=== PATIENT | male | born 1990 | race African-American/Black ===

== ENCOUNTER 2020-06-16 10:12 | Emergency (ER) | payer SELFPAY ==
--- NOTE | 2020-06-16 12:02 | RAD REPORT ---
EXAM DESCRIPTION: Kari Delgado (2 Views)06/16/2020 11:55 am CLINICAL HISTORY: Chest pain COMPARISON: None FINDINGS: The lungs appear clear of acute infiltrate. The heart is normal size IMPRESSION: No acute abnormalities displayed
[2020-06-16 12:58] LABS: Absolute Lymphocytes (CBC) 1.7 K/uL (0.7-4.9); Basophils % 0.6 % (0-1.3); Hematocrit 42.4 % (39.6-49.0); Lymphocytes % 20.2 % (15.3-44.8); MPV 8.2 fL (7.6-11.3); RBC Red Blood Cell Count 5.21 M/uL (4.33-5.43)
[2020-06-16 13:19] LABS: ALT/SGPT 15 U/L (12-78); AST/SGOT 13 U/L (15-37); Albumin 3.6 g/dL (3.4-5.0); Alkaline Phosphatase 86 U/L (45-117); BUN Blood Urea Nitrogen 8 mg/dL (7-18); Bicarbonate 32 mmol/L (21-32); Bilirubin Direct < 0.1 mg/dL (0-0.2); Bilirubin Total 0.7 mg/dL (0.2-1.0); Glucose Level 103 mg/dL (74-106); Protein, Total 7.7 g/dL (6.4-8.2); Sodium Level 141 mmol/L (136-145); Troponin (Emerg Dept Use Only) < 0.02 ng/mL (0.0-0.045)
--- NOTE | 2020-06-16 13:50 | EDPHYS ---
Physician Documentation [facility] Name: Jose Chung Age: 30 yrs Sex: Male : 1990 Arrival Date: 06/16/2020 Time: 10:14 Bed 17 Private MD: MARIBELL Physician Donavon Leon HPI: 06/16 12:21 This 30 yrs old Black Male presents to ER via Ambulatory with complaints of Chest Pain. pm1 12:21 The patient or guardian reports chest pain that is located primarily in the anterior pm1 aspect of left upper chest. The pain does not radiate. Associated signs and symptoms: The patient has no apparent associated signs or symptoms, Pertinent negatives: abdominal pain, cough, headache, nausea, palpitations, shortness of breath, vomiting, fever. The chest pain is described as sharp. Modifying factors: the symptoms are aggravated by deep breath. Severity of pain: in the emergency department the pain is unchanged. The patient has not experienced similar symptoms in the past. Historical: - Allergies: 10:30 No Known Allergies; ss - Home Meds: 10:30 None [Active]; ss - PMHx: 10:30 None; ss - PSHx: 10:30 None; ss - Immunization history:: Adult Immunizations up to date. - Social history:: Smoking status: Patient denies any tobacco usage or history of. ROS: 12:21 Constitutional: Negative for fever, chills, and weight loss. pm1 12:21 ENT: Negative for injury, pain, and discharge, Respiratory: Negative for shortness of breath, cough, wheezing, and pleuritic chest pain, Abdomen/GI: Negative for abdominal pain, nausea, vomiting, diarrhea, and constipation, Back: Negative for injury and pain, MS/Extremity: Negative for injury and deformity, Skin: Negative for injury, rash, and discoloration, Neuro: Negative for headache, weakness, numbness, tingling, and seizure. 12:21 Cardiovascular: Positive for chest pain, Negative for edema, palpitations. Exam: 12:21 Constitutional: This is a well developed, well nourished patient who is awake, alert, pm1 and in no acute distress. Head/Face: Normocephalic, atraumatic. 12:21 Chest/axilla: Normal chest wall appearance and motion. Nontender with no deformity. No lesions are appreciated. Cardiovascular: Regular rate and rhythm with a normal S1 and S2. No gallops, murmurs, or rubs. Normal PMI, no JVD. No pulse deficits. Respiratory: Lungs have equal breath sounds bilaterally, clear to auscultation and percussion. No rales, rhonchi or wheezes noted. No increased work of breathing, no retractions or nasal flaring. 12:21 Back: No spinal tenderness. No costovertebral tenderness. Full range of motion. Skin: Warm, dry with normal turgor. Normal color with no rashes, no lesions, and no evidence of cellulitis. MS/ Extremity: Pulses equal, no cyanosis. Neurovascular intact. Full, normal range of motion. 12:21 Abdomen/GI: Exam negative for acute changes, Inspection: abdomen appears normal, Palpation: abdomen is soft and non-tender, in all quadrants. 12:21 Neuro: Exam negative for acute changes, Orientation: is normal, Motor: is normal, moves all fours, Sensation: is normal, no obvious gross deficits. Vital Signs: 10:28 BP 138 / 82; Pulse 61; Resp 16; Temp 97.4(TE); Pulse Ox 100% on R/A; Weight 145.15 kg; ss Height 6 ft. 1 in. (185.42 cm); Pain 4/10; 12:50 Pulse 83; Pulse Ox 98% on R/A; jp3 13:02 BP 130 / 73; Pulse 61; Resp 17; Pulse Ox 98% on R/A; ll1 14:04 BP 127 / 73; Pulse 60; Resp 17; Pulse Ox 100% ; ll1 10:28 Body Mass Index 42.22 (145.15 kg, 185.42 cm) MDM: 12:21 Patient medically screened. pm1 13:48 Data reviewed: vital signs. Data interpreted: Pulse oximetry: on room air is 98 %. pm1 Interpretation: normal. Counseling: I had a detailed discussion with the patient and/or guardian regarding: the historical points, exam findings, and any diagnostic results supporting the discharge/admit diagnosis, lab results, radiology results, the need for outpatient follow up, to return to the emergency department if symptoms worsen or persist or if there are any questions or concerns that arise at home. 06/16 12:22 Order name: Basic Metabolic Panel; Complete Time: 13:40 pm1 06/16 12:22 Order name: CBC with Diff; Complete Time: 13:40 pm1 06/16 11:32 Order name: XRAY Chest Pa And Lat (2 Views); Complete Time: 12:25 ss 06/16 11:32 Order name: EKG; Complete Time: 11:33 ss 06/16 12:22 Order name: LFT's; Complete Time: 13:40 pm1 06/16 12:22 Order name: Troponin (emerg Dept Use Only); Complete Time: 13:40 pm1 06/16 11:32 Order name: EKG - Nurse/Tech; Complete Time: 11:33 ss 06/16 12:22 Order name: Cardiac monitoring; Complete Time: 12:24 pm1 06/16 12:22 Order name: IV Saline Lock; Complete Time: 12:24 pm1 06/16 12:22 Order name: Labs collected and sent; Complete Time: 12:24 pm1 06/16 12:22 Order name: O2 Per Protocol; Complete Time: 12:24 pm1 06/16 12:22 Order name: O2 Sat Monitoring; Complete Time: 12:24 pm1 Administered Medications: No medications were administered Disposition: 06/17 07:20 Co-signature as Attending Physician, Donavon Leon MD I agree with the assessment and noah plan of care. Disposition: 06/16/20 13:49 Discharged to Home. Impression: Chest pain, unspecified. - Condition is Stable. - Discharge Instructions: Nonspecific Chest Pain. - Prescriptions for Naprosyn 500 mg Oral Tablet - take 1 tablet by ORAL route 2 times per day take with food; 30 tablet. Cyclobenzaprine 10 mg Oral Tablet - take 1 tablet by ORAL route every 8 hours As needed; 30 tablet. - Medication Reconciliation Form, Thank You Letter, Antibiotic Education, Prescription Opioid Use, Work release form form. - Follow up: Emergency Department; When: As needed; Reason: Worsening of condition. Follow up: Private Physician; When: 2 - 3 days; Reason: Recheck today's complaints, Continuance of care, Re-evaluation by your physician. - Problem is new. - Symptoms have improved. Signatures: Dispatcher [employer] Donavon Mcgovern MD MD cha Smirch, Shelby RN RN ss Quan Diaz, CONTINUOUS IMPROVEMENT BLACK BELT CONTINUOUS IMPROVEMENT BLACK BELT pm1 Vivian Mace RN RN ll1 Corrections: (The following items were deleted from the chart) 06/16 14:07 13:49 06/16/2020 13:49 Discharged to Home. Impression: Chest pain, unspecified. ll1 Condition is Stable. Forms are Medication Reconciliation Form, Thank You Letter, Antibiotic Education, Prescription Opioid Use. Follow up: Emergency Department; When: As needed; Reason: Worsening of condition. Follow up: Private Physician; When: 2 - 3 days; Reason: Recheck today's complaints, Continuance of care, Re-evaluation by your physician. Problem is new. Symptoms have improved. pm1
--- NOTE | 2020-06-16 13:50 | ER ---
Nurse's Notes [facility] Name: Jose Chung Age: 30 yrs Sex: Male : 1990 Arrival Date: 06/16/2020 Time: 10:14 Bed 17 Private MD: Diagnosis: Chest pain, unspecified Presentation: 06/16 10:28 Chief complaint: Patient states: substernal pain when taking a deep breath x 3 days. ss Denies Fever, Cough and/or SOB. Coronavirus screen: Client denies travel out of the [place] in the last 14 days. Ebola Screen: Patient denies exposure to infectious person. Patient denies travel to an Ebola-affected area in the 21 days before illness onset. Initial Sepsis Screen: Does the patient meet any 2 criteria? No. Patient's initial sepsis screen is negative. Does the patient have a suspected source of infection? No. Patient's initial sepsis screen is negative. Risk Assessment: Do you want to hurt yourself or someone else? Patient reports no desire to harm self or others. Onset of symptoms was June 13, 2020. 10:28 Method Of Arrival: Ambulatory ss 10:28 Acuity: AMY 3 ss Triage Assessment: 14:04 General: Appears in no apparent distress. Behavior is calm, cooperative, appropriate ll1 for age. Pain: Denies pain. Cardiovascular: Reports chest pain. Historical: - Allergies: 10:30 No Known Allergies; ss - Home Meds: 10:30 None [Active]; ss - PMHx: 10:30 None; ss - PSHx: 10:30 None; ss - Immunization history:: Adult Immunizations up to date. - Social history:: Smoking status: Patient denies any tobacco usage or history of. Screenin:04 Abuse screen: Denies threats or abuse. Nutritional screening: No deficits noted. ll1 Tuberculosis screening: No symptoms or risk factors identified. Fall Risk None identified. Total Duong Fall Scale indicates No Risk (0-24 pts). Assessment: 11:33 Reassessment: EKG obtained and shown to DR. Leon. VO/ 100% RB for 2 view chest XRAY.ss 12:30 Reassessment: No changes from previously documented assessment. Patient and/or family ll1 updated on plan of care and expected duration. Pain level reassessed. 13:30 Reassessment: No changes from previously documented assessment. Patient and/or family ll1 updated on plan of care and expected duration. Pain level reassessed. 14:13 Pain: Pain began. ll1 14:15 Pain: Pain does not radiate. ll1 Vital Signs: 10:28 BP 138 / 82; Pulse 61; Resp 16; Temp 97.4(TE); Pulse Ox 100% on R/A; Weight 145.15 kg; ss Height 6 ft. 1 in. (185.42 cm); Pain 4/10; 12:50 Pulse 83; Pulse Ox 98% on R/A; jp3 13:02 BP 130 / 73; Pulse 61; Resp 17; Pulse Ox 98% on R/A; ll1 14:04 BP 127 / 73; Pulse 60; Resp 17; Pulse Ox 100% ; ll1 10:28 Body Mass Index 42.22 (145.15 kg, 185.42 cm) ED Course: 10:14 Patient arrived in ED. rg4 10:29 Triage completed. ss 10:30 Arm band placed on right wrist. ss 11:50 EKG done, by ED staff, reviewed by Donavon Leon MD. jp3 11:53 XRAY Chest Pa And Lat (2 Views) In Process Unspecified. EDMS 12:19 Vivian Mace, GERALD is Primary Nurse. ll1 12:21 Quan Diaz NP is PHCP. pm1 12:21 Donavon Leon MD is Attending Physician. pm1 12:45 Initial lab(s) drawn, by ky, sent to lab. jp3 12:45 Patient maintains SpO2 saturation greater than 95% on room air. jp3 14:05 Patient has correct armband on for positive identification. Bed in low position. Call ll1 light in reach. Side rails up X 1. Pulse ox on. NIBP on. 14:07 No provider procedures requiring assistance completed. Patient did not have IV access ll1 during this emergency room visit. Administered Medications: No medications were administered Outcome: 13:49 Discharge ordered by . pm1 14:07 Patient left the ED. ll1 14:07 Discharged to home ambulatory. ll1 14:07 Condition: stable 14:07 Discharge instructions given to patient, Instructed on discharge instructions, follow up and referral plans. no drinking with medication, no driving heavy equipment, medication usage, Demonstrated understanding of instructions, follow-up care, medications, Prescriptions given X 2. Signatures: Dispatcher [employer] Minda Rosado, RN RN ss Quan Diaz, [employer] pm1 Jeana Del Cid rg4 Jacek Minor jp3 Vivian Mace RN RN ll1
[2020-06-16 14:11] VITALS: TEMP 97.4
[2020-06-16 14:32] VITALS: BP 127/73; O2SAT 100
--- NOTE | 2020-06-17 15:29 | EKG ---
Test Date: 2020-06-16 Test Time: 11:29:23 Teletype Installer: JANINE MEASUREMENT RESULTS: Intervals: Rate: 53 KS: 144 QRSD: 94 QT: 414 QTc: 388 [place]: P: 27 KS: 144 QRS: 51 T: 43 INTERPRETIVE STATEMENTS: Sinus bradycardia with sinus arrhythmia Otherwise normal ECG No previous ECG available for comparison Electronically Signed On 06-17-20 15:26:39 MAGNETIC TESTER by Niko De León
== END 2020-06-16 14:07 | disposition home or self-care (01) ==
LOC: ER 10:12
DX: R07.9 Chest pain, unspecified (principal)
CPT/HCPCS: 36415; 71046; 80048; 80076; 84484; 85025; 93005; 99284

== ENCOUNTER 2024-08-24 08:43 | Emergency (ER) | payer SELFPAY ==
--- NOTE | 2024-08-24 09:23 | RAD REPORT ---
EXAMINATION: CT ABDOMEN AND PELVIS WITHOUT CONTRAST CLINICAL INDICATION: right back pain, hematuria TECHNIQUE: CT abdomen and pelvis was performed, without IV contrast, as per department protocol. Axia l, sagittal and coronal reconstructions were obtained. One or more of the following dose reduction techniques were used: Automated exposure control, adjustment of the mA and kV according to the patien t size, and iterative reconstruction. Unless otherwise specified, incidental findings do not require dedicated imaging follow-up. COMPARISON: No prior exam. FINDINGS: The lack of intravenous contrast limits the sensitivity of this exam for evaluation of solid visceral organs, vascular structures, and retroperitoneum. LOWER CHEST: Fibrotic changes are seen in both lung bases. Patulous distal esophagus. LIVER:Normal in size and contour. No focal lesion. Grossly unremarkable gallbladder. SPLEEN: Normal size. No focal lesion. PANCREAS: No mass, ductal dilation, or hai-pancreatic fluid. ADRENALS: Normal; no mass. KIDNEYS AND URETERS: Punctate stone superior calyx left kidney. No significant hydronephrosis. No ure ter stone seen. URINARY BLADDER: Thickening of the urinary bladder wall noted. This may be accentuated by incomplete distention. GASTROINTESTINAL TRACT: No evidence of bowel obstruction, significant free fluid, free air or abscess . APPENDIX: Normal appendix. LYMPH NODES: No lymphadenopathy. MUSCULOSKELETAL: No acute or suspicious osseous abnormality. IMPRESSION: Punctate calculus superior calyx left kidney. No hydronephrosis. Urinary bladder wall thickening, indeterminate. Cystoscopy may be considered for follow-up jaye trinidad.
[2024-08-24 09:34] LABS: Absolute Eosinophils 0.1 K/uL (0-0.5); Absolute Lymphocytes (CBC) 1.6 K/uL (0.7-4.9); Absolute Monocytes 0.4 K/uL (0.1-1.3); Absolute Neutrophil 4.8 K/uL (1.8-8.0); Basophils % 0.4 % (0-1.3); Eosinophils % 1.1 % (0-4.4); Hematocrit 43.7 % (39.6-49.0); Lymphocytes % 22.8 % (15.3-44.8); MCH 29.6 pg (27.0-35.0); MCHC 34.4 g/dL (32.0-36.0); MPV 8.6 fL (7.6-11.3); Neutrophils % 69.7 % (41.7-73.7); Nucleated Red Blood Cells % 0.2 % (0-0); Platelets 210 thou/uL (152-406); RBC Red Blood Cell Count 5.08 M/uL (4.33-5.43); Red Cell Distribution Width 13.7 % (12.1-15.2)
[2024-08-24 09:39] LABS: Specific Gravity 1.018 (1.005-1.030); Sqamous Epithelial None Seen /HPF (None Seen); Urine Bacteria None Seen /HPF (<20); Urine Bilirubin NEGATIVE (Negative); Urine Blood 1+ (Negative); Urine Clarity Clear (Clear); Urine Color Light-Yellow (Yellow); Urine Culture Reflex Order NOT NEEDED; Urine Glucose NEGATIVE (Negative); Urine Ketones NEGATIVE (Negative); Urine Microscopic Reflex YN ORDER UMIC; Urine Mucus Slight /HPF (None Seen); Urine Nitrite NEGATIVE (Negative); Urine Protein NEGATIVE (Negative); Urine RBC 21-50 /HPF (None Seen); Urine Urobilinogen Normal (Normal); Urine WBC <5 /HPF (<5)
[2024-08-24 09:51] LABS: Anion Gap 5.6 mEq/L (5.0-15.0); Potassium 3.6 mEq/L (3.5-5.1)
--- NOTE | 2024-08-24 09:57 | EDPHYS ---
Physician Documentation [facility] Name: Jose Chung Age: 34 yrs Sex: Male : 1990 Arrival Date: 08/24/2024 Time: 08:43 Bed 19 Private MD: ED Physician Christopher Godoy HPI: 08/24 09:01 This 34 yrs old Black Male presents to ER via Ambulatory with complaints of Blood in rn urine. 09:01 The patient presents with urinary symptoms, Hematuria. Onset: The symptoms/episode rn began/occurred today. Modifying factors: The symptoms are alleviated by nothing, the symptoms are aggravated by urinating. Severity of symptoms: At their worst the symptoms were mild, in the emergency department the symptoms are unchanged. The patient has not experienced similar symptoms in the past. Patient reports single episode of gross hematuria. Happened at work. Denies any injury or trauma. No history of kidney stones. Reports associated with mild right lower back pain. No fever or chills. No family history of kidney stones. No known kidney problems. Has never happened before.. Historical: - Allergies: 08:47 No Known Allergies; ll1 - Home Meds: 08:52 None [Active]; ll1 - PMHx: 08:52 None; ll1 - PSHx: 08:52 None; ll1 - Immunization history:: Adult Immunizations up to date. - Infectious Disease History:: Denies. - Social history:: Smoking status: Patient denies any tobacco usage or history of. - Family history:: not pertinent. - Hospitalizations: : No recent hospitalization is reported. ROS: 09:01 Constitutional: Negative for fever, chills, and weight loss, Cardiovascular: Negative rn for chest pain, palpitations, and edema, Respiratory: Negative for shortness of breath, cough, wheezing, and pleuritic chest pain, Abdomen/GI: Negative for abdominal pain, nausea, vomiting, diarrhea, and constipation, Back: Positive for lower back pain on the right side : Positive for hematuria MS/Extremity: Negative for injury and deformity, Skin: Negative for injury, rash, and discoloration, Neuro: Negative for headache, weakness, numbness, tingling, and seizure, Exam: 09:01 Constitutional: This is a well developed, well nourished patient who is awake, alert, rn and in no acute distress. Cardiovascular: Regular rate and rhythm. No pulse deficits. Respiratory: No increased work of breathing, no retractions or nasal flaring. Abdomen/GI: Soft, non-tender Back: No spinal tenderness. No costovertebral tenderness. Full range of motion. Vital Signs: 08:52 BP 123 / 89; Pulse 79; Resp 16; Temp 98.5(O); Pulse Ox 97% on R/A; Weight 95.25 kg; ll1 Height 6 ft. 0 in. ; Pain 2/10; 08:52 Body Mass Index 28.48 (95.25 kg, 182.88 cm) ll1 08:52 Pain Scale: Adult ll1 MDM: 08:47 Medical Screening Exam initiated rn 09:55 Differential diagnosis: UTI, urethritis, Urinary calculus, hematuria unspecified, rn kidney mass, malignancy, cystitis. Data reviewed: vital signs, nurses notes, lab test result(s), radiologic studies, CT scan, and as a result, I will discharge patient. Counseling: I had a detailed discussion with the patient and/or guardian regarding the historical points, exam findings, and any diagnostic results supporting the discharge/admit diagnosis, lab results, radiology results, the need for outpatient follow up, to return to the emergency department if symptoms worsen or persist or if there are any questions or concerns that arise at home. Special discussion: I discussed with the patient/guardian in detail that at this point there is no indication for admission to the hospital. It is understood, however, that if the symptoms persist or worsen the patient needs to return immediately for re-evaluation. ED course: CT shows left-sided calculus but no ureteral or bladder stone. Shows nonspecific bladder wall thickening but urinalysis not convincing for UTI. Will place on antibiotics and have patient follow-up with PCP and urology given gross hematuria without clear etiology. Return precautions given and understood.. 08/24 08:54 Order name: CBC with Diff; Complete Time: : rn 08/24 08:54 Order name: Basic Metabolic Panel; Complete Time: : rn 08/24 08:54 Order name: Urinalysis w/ reflexes; Complete Time: :55 rn 08/24 08:54 Order name: CT Stone Protocol; Complete Time: 09: rn 08/24 08:54 Order name: IV Start; Complete Time: :28 rn Administered Medications: No medications were administered Disposition Summary: 08/24/24 09:57 Discharge Ordered Notes: Location: Home rn Problem: new rn Symptoms: have improved rn Condition: Stable rn Diagnosis - Gross hematuria rn - Calculus of kidney rn Followup: rn - With: Private Physician - When: As needed - Reason: Recheck today's complaints, Re-evaluation by your physician Discharge Instructions: - Discharge Summary Sheet rn - Hematuria, Adult rn - Kidney Stones rn Forms: - Medication Reconciliation Form 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
--- NOTE | 2024-08-24 09:57 | ER ---
Nurse's Notes [facility] Name: Jose Chung Age: 34 yrs Sex: Male : 1990 Arrival Date: 08/24/2024 Time: 08:43 Bed 19 Private MD: Diagnosis: Gross hematuria;Calculus of kidney Presentation: 08/24 08:52 Chief complaint: Patient states: Noticed blood in urine at work today. Coronavirus ll1 screen: Client denies travel out of the [place] in the last 14 days. At this time, the client does not indicate any symptoms associated with coronavirus-19. Ebola Screen: Patient denies travel to an Ebola-affected area in the 21 days before illness onset. Initial Sepsis Screen: Does the patient meet any 2 criteria? No. Patient's initial sepsis screen is negative. Does the patient have a suspected source of infection? No. Patient's initial sepsis screen is negative. Risk Assessment: Do you want to hurt yourself or someone else? Patient reports no desire to harm self or others. Onset of symptoms was August 24, 2024. 08:52 Method Of Arrival: Ambulatory ll1 08:52 Acuity: AMY 3 ll1 Triage Assessment: 08:53 General: Appears in no apparent distress. Behavior is calm, cooperative, appropriate ll1 for age. Pain: Complains of pain in R lower back Pain currently is 2 out of 10 on a pain scale. Quality of pain is described as aching. : Reports pain in right in lower back with urination, blood in urine. Historical: - Allergies: 08:47 No Known Allergies; ll1 - Home Meds: 08:52 None [Active]; ll1 - PMHx: 08:52 None; ll1 - PSHx: 08:52 None; ll1 - Immunization history:: Adult Immunizations up to date. - Infectious Disease History:: Denies. - Social history:: Smoking status: Patient denies any tobacco usage or history of. - Family history:: not pertinent. - Hospitalizations: : No recent hospitalization is reported. Screenin:28 [facility] ED Fall Risk Assessment (Adult) History of falling in the last 3 months, kc6 including since admission No falls in past 3 months (0 pts) Confusion or Disorientation No (0 pts) Intoxicated or Sedated No (0 pts) Impaired Gait No (0 pts) Mobility Assist Device Used No (0 pt) Altered Elimination No (0 pt) Score/Fall Risk Level 0 - 2 = Low Risk Oriented to surroundings, Maintained a safe environment, Educated pt \T\ family on fall prevention, incl call for assistance when getting out of bed. Abuse screen: Denies threats or abuse. Denies injuries from another. Nutritional screening: No deficits noted. Tuberculosis screening: No symptoms or risk factors identified. Assessment: 10:10 General: Appears in no apparent distress. comfortable, well groomed, well developed, kc6 Behavior is calm, cooperative, appropriate for age. Pain: Denies pain. Neuro: Level of Consciousness is awake, alert, obeys commands, Oriented to person, place, time, situation, Appropriate for age. Cardiovascular: Capillary refill < 3 seconds. Respiratory: Airway is patent Trachea midline Respiratory effort is even, unlabored, Respiratory pattern is regular, symmetrical. GI: No signs and/or symptoms were reported involving the gastrointestinal system. : Urine is cloudy, Reports hematuria Denies burning with urination, urinary frequency, urgency. EENT: No signs and/or symptoms were reported regarding the EENT system. Derm: No signs and/or symptoms reported regarding the dermatologic system. Skin is intact, is healthy with good turgor, Skin is pink, warm \T\ dry. Musculoskeletal: No signs and/or symptoms reported regarding the musculoskeletal system. Circulation, motion, and sensation intact. Range of motion: intact in all extremities. Vital Signs: 08:52 BP 123 / 89; Pulse 79; Resp 16; Temp 98.5(O); Pulse Ox 97% on R/A; Weight 95.25 kg; ll1 Height 6 ft. 0 in. ; Pain 2/10; 08:52 Body Mass Index 28.48 (95.25 kg, 182.88 cm) ll1 08:52 Pain Scale: Adult ll1 ED Course: 08:46 Patient arrived in ED. mr 08:47 Christopher Godoy MD is Attending Physician. rn 08:47 Arm band placed on Patient placed in an exam room, on a stretcher. ll1 08:53 Triage completed. ll1 09:06 Jocelin Corral, GERALD is Primary Nurse. kc6 09:08 CT Stone Protocol In Process Unspecified. EDMS 09:28 Patient has correct armband on for positive identification. Bed in low position. Call kc6 light in reach. Side rails up X 1. Pulse ox on. NIBP on. Door closed. Noise minimized. Lights dimmed. Pillow given. Verbal reassurance given. 09:28 Initial lab(s) drawn, by me, sent to lab. Inserted saline lock: 20 gauge in right kc6 forearm, using aseptic technique. Blood collected. Flushed with 10 mL NS. Patient maintains SpO2 saturation greater than 95% on room air. 10:11 No provider procedures requiring assistance completed. IV discontinued, intact, kc6 bleeding controlled, No redness/swelling at site. Pressure dressing applied. Administered Medications: No medications were administered Medication: 10:12 VIS not applicable for this client. 6 Outcome: 09:57 Discharge ordered by . rn 10:11 Discharged to home ambulatory, 6 10:11 Condition: good 10:11 Discharge instructions given to patient, Instructed on discharge instructions, follow up and referral plans. medication usage, Demonstrated understanding of instructions, follow-up care, medications, Prescriptions given X 1, 10:12 Patient left the ED. kc6 Signatures: Dispatcher [employer] EDMO Yvette Wolfe, Reg Reg mr Christopher Godoy MD MD rn Lewis, Lynsay, RN RN ll1 Jocelin Corral RN RN kc6 Corrections: (The following items were deleted from the chart) 09:01 08:52 BP 123 / 89; Pulse 79bpm; Resp 16bpm; 95.25 kg; Height 6 ft. 0 in.; BMI: 28.4; ll1 Pain 2/10, Adult; ll1
[2024-08-24 10:18] VITALS: BP 123/89; TEMP 98.5; O2SAT 97
== END 2024-08-24 10:12 | disposition home or self-care (01) ==
LOC: ER 08:43
DX: N20.0 Calculus of kidney (principal)
CPT/HCPCS: 36415; 74176; 76377; 80048; 81001; 85025; 99284